=== PATIENT | female | born 1985 | race Two or more races ===

== ENCOUNTER 2021-06-17 01:07 | Inpatient (IN) | payer OTHER ==
[~2021-06-17] VITALS: Ht 157.5 cm; Wt 83.9 kg
[2021-06-17] MEDS ORDERED: IV NORMAL SALINE 1000 ML BAG IV ONE (01:30)
[2021-06-17] MEDS ORDERED: HYDROMORPHONE 1 MG/1 ML DISP.SYRIN IV ONE ×2 (01:30→04:15)
[2021-06-17] MEDS ORDERED: ONDANSETRON 4 MG/2 ML VIAL IV ONE (01:30)
[2021-06-17] MEDS ORDERED: ONDANSETRON 4 MG/2 ML VIAL ONE ×4 (01:33→18:54)
[2021-06-17] MEDS ORDERED: HYDROMORPHONE 2 MG/1 ML DISP.SYRIN ONE ×2 (01:33→04:20)
[2021-06-17 01:43] LABS: HEMATOCRIT 34.6 % (31.2-41.9); MEAN CORPUSCULAR HEMOGLOBIN 24.8 uug (24.7-32.8); MEAN CORPUSCULAR VOLUME 77.1 fL (75.5-95.3); PLATELET COUNT (AUTO) 325 K/uL (179-408)
[2021-06-17 01:55] LABS: POTASSIUM 3.9 mmol/L (3.5-5.1)
[2021-06-17 02:00] LABS: BILIRUBIN,DIRECT 0.1 mg/dL (0.0-0.2); BILIRUBIN,TOTAL 0.4 mg/dL (0.2-1.0); TOTAL PROTEIN, SERUM 8.9 g/dL (6.4-8.2)
[2021-06-17] MEDS ORDERED: LIDOCAINE 2% (UROJET) 10 ML JELLY MM ONE (02:45)
[2021-06-17 04:53] LABS: *URINE HCG, QUAL NEGATIVE (NEGATIVE)
[2021-06-17] MEDS ORDERED: SWABABLE VALVE TRANSFER SET EA MC ONE (05:11)
[2021-06-17] MEDS ORDERED: IOHEXOL 300MG/ML 100 ML INFUS..BTL ONE (05:11)
[2021-06-17] MEDS ORDERED: IV NORMAL SALINE 250 ML IV ONE (05:11)
[2021-06-17 05:40] LABS: *BILIRUBIN,URIN NEGATIVE (NEGATIVE); *BLOOD, URINE NEGATIVE (NEGATIVE); *CLARITY,URINE CLOUDY (CLEAR); *COLOR,URINE YELLOW (YELLOW); *KETONES,URINE NEGATIVE (NEGATIVE); *UROBILINOGEN,URINE 0.2 E.U./dl (NORMAL); LEUKOCYTE ESTERASE ,URINE TRACE (NEGATIVE); NITRITE, URINE NEGATIVE (NEGATIVE); UGLUCOSE NEGATIVE (NEGATIVE)
[2021-06-17 06:02] LABS: BACTERIA,URINE MODERATE /HPF (NONE SEEN); RBC,URINE 0-3 /HPF (0-3); SQUAMOUS EPITHELIAL CELL,UR MANY /HPF (NONE SEEN)
[2021-06-17] MEDS ORDERED: ACETAMINOPHEN 325 MG TABLET PO PRN (06:15)
[2021-06-17] MEDS ORDERED: Z GUARD REMEDY PASTE 57 GM TUBE TOP PRN (06:15)
[2021-06-17] MEDS ORDERED: PROCHLORPERAZINE EDISYLATE 10 MG/2 ML VIAL ONE (06:24)
[2021-06-17] MEDS ORDERED: PROCHLORPERAZINE EDISYLATE 10 MG/2 ML VIAL IV ONE (06:30)
[2021-06-17] MEDS ORDERED: LAMO200T2 PO ×2 (07:07)
[2021-06-17] MEDS ORDERED: DIATR MEGLU/DIATRIZOATE SODIUM 30 ML BOTTLE ONE (08:32)
[2021-06-17] MEDS ORDERED: PANTOPRAZOLE SODIUM 40 MG VIAL IV SCH (09:00)
[2021-06-17] MEDS: MORPHINE SULFATE 2 MG/1 ML DISP.SYRIN IV PRN ×3 (10:18→22:20)
[2021-06-17] MEDS: ONDANSETRON 4 MG/2 ML VIAL IV PRN ×2 (10:18→14:30)
[2021-06-17] MEDS ORDERED: MORPHINE SULFATE 2 MG/1 ML DISP.SYRIN ONE ×3 (10:21→22:23)
[2021-06-17] MEDS ORDERED: PANTOPRAZOLE SODIUM 40 MG VIAL ONE (10:21)
[2021-06-17] MEDS ORDERED: levETIRAcetam IV 500 MG in IV DEXTROSE 5% 100 ML IV SCH (13:45)
[2021-06-17] MEDS: CEFTRIAXONE 1 G in IV DEXTROSE 5% 50 ML IV SCH (14:55)
[2021-06-17] MEDS: IV D5/ 0.9% NACL 1,000 ML IV PRN (14:56)
[2021-06-17] MEDS ORDERED: CEFTRIAXONE /D5W 50ML IVPB **ER PYXIS IV ONE (15:02)
[2021-06-17] MEDS ORDERED: LIDOCAINE-MPF 2% 5 ML VIAL ONE (18:54)
[2021-06-17] MEDS ORDERED: NEOSTIGMINE METHYLSULFATE 10 MG/10 ML VIAL ONE (18:54)
[2021-06-17] MEDS ORDERED: PROPOFOL 200 MG/20 ML BOTTLE ONE (18:54)
[2021-06-17] MEDS ORDERED: METOCLOPRAMIDE HCL 10 MG/2 ML VIAL ONE (18:54)
[2021-06-17] MEDS ORDERED: GLYCOPYRROLATE 0.2 MG/ML VIAL ONE (18:54)
[2021-06-17] MEDS ORDERED: ROCURONIUM BROMIDE 50 MG/5 ML VIAL ONE (18:54)
[2021-06-17] MEDS ORDERED: CEFAZOLIN 1 G VIAL ONE (18:54)
[2021-06-17] MEDS ORDERED: LAMOTRIGINE 100 MG TABLET ONE ×2 (21:34→21:56)
[2021-06-17] MEDS: LAMOTRIGINE 100 MG TABLET PO SCH (21:40)
[2021-06-18] MEDS ORDERED: ACETAMINOPHEN 325 MG TABLET ONE ×2 (01:52→15:29)
[2021-06-18] MEDS ORDERED: MORPHINE SULFATE 2 MG/1 ML DISP.SYRIN ONE ×5 (01:53→16:57)
[2021-06-18] MEDS: MORPHINE SULFATE 2 MG/1 ML DISP.SYRIN IV PRN ×5 (02:12→20:19)
[2021-06-18] MEDS: ACETAMINOPHEN 325 MG TABLET PO PRN ×2 (02:13→15:25)
[2021-06-18 06:23] LABS: HEMATOCRIT 28.1 % (31.2-41.9); MEAN CORPUSCULAR HEMOGLOBIN 24.9 uug (24.7-32.8); MEAN CORPUSCULAR VOLUME 78.5 fL (75.5-95.3); PLATELET COUNT (AUTO) 211 K/uL (179-408)
[2021-06-18] MEDS: PANTOPRAZOLE SODIUM 40 MG TABLET.DR PO SCH (08:05)
[2021-06-18 08:10] LABS: BILIRUBIN,TOTAL 0.2 mg/dL (0.2-1.0); CREATININE 0.8 mg/dL (0.6-1.3); PHOSPHOROUS 2.7 mg/dL (2.5-4.9); POTASSIUM 3.5 mmol/L (3.5-5.1); TOTAL PROTEIN, SERUM 6.5 g/dL (6.4-8.2)
[2021-06-18] MEDS: LAMOTRIGINE 100 MG TABLET PO SCH ×2 (09:02→20:19)
[2021-06-18] MEDS: IV D5/ 0.9% NACL 1,000 ML IV PRN (09:07)
[2021-06-18] MEDS: CEFTRIAXONE 1 G in IV DEXTROSE 5% 50 ML IV SCH (15:03)
[2021-06-18] MEDS ORDERED: CEFTRIAXONE /D5W 50ML IVPB **ER PYXIS IV ONE (15:08)
[2021-06-18] MEDS: ONDANSETRON 4 MG/2 ML VIAL IV PRN (15:25)
[2021-06-18] MEDS ORDERED: ONDANSETRON 4 MG/2 ML VIAL ONE (15:29)
[2021-06-18 16:41] LABS: IRON, SERUM 56 ug/dL (50-175)
[2021-06-18 20:48] VITALS: BP 102/62
[2021-06-19] MEDS: IV D5/ 0.9% NACL 1,000 ML IV PRN ×2 (00:05→13:58)
[2021-06-19] MEDS: MORPHINE SULFATE 2 MG/1 ML DISP.SYRIN IV PRN ×6 (00:05→22:23)
[2021-06-19] MEDS: ONDANSETRON 4 MG/2 ML VIAL IV PRN (04:09)
[2021-06-19 04:30] VITALS: BP 99/58
[2021-06-19] MEDS: PANTOPRAZOLE SODIUM 40 MG TABLET.DR PO SCH (06:28)
[2021-06-19 07:01] LABS: HEMATOCRIT 25.8 % (31.2-41.9); MEAN CORPUSCULAR HEMOGLOBIN 25.1 uug (24.7-32.8); MEAN CORPUSCULAR VOLUME 77.7 fL (75.5-95.3); PLATELET COUNT (AUTO) 206 K/uL (179-408)
[2021-06-19 07:50] LABS: CREATININE 0.7 mg/dL (0.6-1.3); MAGNESIUM 1.9 mg/dL (1.8-2.4); PHOSPHOROUS 3.2 mg/dL (2.5-4.9); POTASSIUM 3.4 mmol/L (3.5-5.1)
[2021-06-19] MEDS: LAMOTRIGINE 100 MG TABLET PO SCH ×2 (09:35→20:34)
[2021-06-19] MEDS ORDERED: POTASSIUM CHLORIDE 20 MEQ TAB.PRT.SR PO ONE (10:15)
[2021-06-19 12:00] VITALS: BP 103/41
[2021-06-19] MEDS: CEFTRIAXONE 1 G in IV DEXTROSE 5% 50 ML IV SCH (15:05)
[2021-06-19 16:00] VITALS: BP 92/57
[2021-06-19 20:00] VITALS: BP 105/58
[2021-06-19] MEDS: PIPERACILLIN SODIUM/TAZOBACTAM 3.375 G in IV DEXTROSE 5% 100 ML IV SCH (21:49)
[2021-06-19] MEDS ORDERED: PIPERACILLIN SODIUM/TAZOBACTAM 3.375 G in IV DEXTROSE 5% 50 ML IV SCH (22:00)
[2021-06-20] MEDS ORDERED: MORPHINE SULFATE 2 MG/1 ML DISP.SYRIN IV ONE (01:14)
[2021-06-20 04:00] VITALS: BP 113/58
[2021-06-20] MEDS: PIPERACILLIN SODIUM/TAZOBACTAM 3.375 G in IV DEXTROSE 5% 100 ML IV SCH ×3 (06:05→21:05)
[2021-06-20] MEDS: PANTOPRAZOLE SODIUM 40 MG TABLET.DR PO SCH (06:06)
[2021-06-20 06:49] LABS: HEMATOCRIT 26.8 % (31.2-41.9); MEAN CORPUSCULAR HEMOGLOBIN 25.1 uug (24.7-32.8); MEAN CORPUSCULAR VOLUME 77.5 fL (75.5-95.3); PLATELET COUNT (AUTO) 227 K/uL (179-408)
[2021-06-20 06:57] LABS: CREATININE 0.7 mg/dL (0.6-1.3); MAGNESIUM 2.1 mg/dL (1.8-2.4); PHOSPHOROUS 3.7 mg/dL (2.5-4.9); POTASSIUM 3.8 mmol/L (3.5-5.1)
[2021-06-20] MEDS: MORPHINE SULFATE 2 MG/1 ML DISP.SYRIN IV PRN (09:39)
[2021-06-20] MEDS: LAMOTRIGINE 100 MG TABLET PO SCH ×2 (09:43→21:04)
[2021-06-20 10:35] VITALS: BP 91/44
[2021-06-20] MEDS: IV D5/ 0.9% NACL 1,000 ML IV PRN (13:13)
[2021-06-20] MEDS ORDERED: MIDAZOLAM HCL 2 MG/2 ML VIAL ONE (14:36)
[2021-06-20] MEDS ORDERED: HYDROMORPHONE 2 MG/1 ML DISP.SYRIN ONE (14:37)
[2021-06-20] MEDS ORDERED: FENTANYL CITRATE 250 MCG/5 ML AMPUL ONE (14:37)
[2021-06-20] MEDS ORDERED: ROCURONIUM BROMIDE 50 MG/5 ML VIAL ONE (14:38)
[2021-06-20] MEDS ORDERED: LIDOCAINE HCL 1% 20 ML VIAL ONE (15:28)
[2021-06-20] MEDS ORDERED: BUPIVACAINE/EPI PF 0.25% 30 ML VIAL ONE (15:29)
[2021-06-20] MEDS ORDERED: METRONIDAZOLE 500 MG/NS 100ML 500 MG in PREMIXED 1 EACH IV ONE (16:00)
[2021-06-20 16:32] VITALS: BP 112/62
[2021-06-20] MEDS ORDERED: BACITRACIN ZINC OINT 15 GM TUBE ONE (17:50)
[2021-06-20] MEDS ORDERED: HYDROMORPHONE 1 MG/1 ML DISP.SYRIN ONE (18:44)
[2021-06-20] MEDS ORDERED: FENTANYL CITRATE 100 MCG/2 ML AMPUL ONE (19:20)
[2021-06-20 20:27] VITALS: BP 98/57
[2021-06-20] MEDS: IBUPROFEN 800 MG TABLET PO SCH (21:04)
[2021-06-20] MEDS: GABAPENTIN 300 MG CAPSULE PO SCH (21:04)
[2021-06-20] MEDS: ACETAMINOPHEN 325 MG TABLET PO SCH (21:04)
[2021-06-20] MEDS ORDERED: LAMOTRIGINE 100 MG TABLET PO ONE (21:15)
[2021-06-20] MEDS: HYDROMORPHONE 1 MG/1 ML DISP.SYRIN IV PRN ×2 (21:25→23:39)
[2021-06-20] MEDS: ONDANSETRON 4 MG/2 ML VIAL IV PRN (21:25)
[2021-06-20] MEDS: IV LACTATED RINGERS SOLUTION 1,000 ML IV PRN (21:26)
[2021-06-21] MEDS: HYDROMORPHONE 1 MG/1 ML DISP.SYRIN IV PRN ×7 (01:46→20:25)
[2021-06-21 04:15] VITALS: BP 118/77
[2021-06-21] MEDS: PIPERACILLIN SODIUM/TAZOBACTAM 3.375 G in IV DEXTROSE 5% 100 ML IV SCH ×3 (05:12→21:12)
[2021-06-21] MEDS: IV LACTATED RINGERS SOLUTION 1,000 ML IV PRN (05:12)
[2021-06-21] MEDS: GABAPENTIN 300 MG CAPSULE PO SCH ×3 (05:13→21:11)
[2021-06-21] MEDS: ACETAMINOPHEN 325 MG TABLET PO SCH ×3 (05:13→21:11)
[2021-06-21] MEDS: IBUPROFEN 800 MG TABLET PO SCH ×3 (05:13→21:11)
[2021-06-21] MEDS: PANTOPRAZOLE SODIUM 40 MG TABLET.DR PO SCH (06:07)
[2021-06-21 06:28] LABS: HEMATOCRIT 27.2 % (31.2-41.9); MEAN CORPUSCULAR HEMOGLOBIN 25.4 uug (24.7-32.8); MEAN CORPUSCULAR VOLUME 78.1 fL (75.5-95.3); PLATELET COUNT (AUTO) 231 K/uL (179-408)
[2021-06-21 07:14] LABS: CREATININE 0.7 mg/dL (0.6-1.3); MAGNESIUM 1.8 mg/dL (1.8-2.4); PHOSPHOROUS 3.6 mg/dL (2.5-4.9); POTASSIUM 3.6 mmol/L (3.5-5.1)
[2021-06-21] MEDS: LAMOTRIGINE 100 MG TABLET PO SCH ×2 (08:11→20:26)
[2021-06-21 12:48] VITALS: BP 102/65
[2021-06-21 16:25] VITALS: BP 124/70
[2021-06-21 20:00] VITALS: BP 129/79
[2021-06-22] MEDS: HYDROMORPHONE 1 MG/1 ML DISP.SYRIN IV PRN ×2 (03:50→08:08)
[2021-06-22 04:00] VITALS: BP 102/66
[2021-06-22] MEDS: IBUPROFEN 800 MG TABLET PO SCH ×3 (05:25→21:47)
[2021-06-22] MEDS: GABAPENTIN 300 MG CAPSULE PO SCH ×3 (05:25→21:47)
[2021-06-22] MEDS: ACETAMINOPHEN 325 MG TABLET PO SCH ×3 (05:25→20:01)
[2021-06-22] MEDS: PIPERACILLIN SODIUM/TAZOBACTAM 3.375 G in IV DEXTROSE 5% 100 ML IV SCH ×3 (05:27→21:48)
[2021-06-22] MEDS: PANTOPRAZOLE SODIUM 40 MG TABLET.DR PO SCH (06:13)
[2021-06-22 06:39] LABS: HEMATOCRIT 25.6 % (31.2-41.9); MEAN CORPUSCULAR HEMOGLOBIN 25.1 uug (24.7-32.8); MEAN CORPUSCULAR VOLUME 77.9 fL (75.5-95.3); PLATELET COUNT (AUTO) 219 K/uL (179-408)
[2021-06-22 07:08] LABS: CREATININE 0.7 mg/dL (0.6-1.3); MAGNESIUM 1.7 mg/dL (1.8-2.4); PHOSPHOROUS 3.3 mg/dL (2.5-4.9); POTASSIUM 3.6 mmol/L (3.5-5.1)
[2021-06-22] MEDS: MAGNESIUM SULFATE/D5W 100 ML IV SCH ×2 (09:33→10:25)
[2021-06-22] MEDS: LAMOTRIGINE 100 MG TABLET PO SCH ×2 (09:33→20:02)
[2021-06-22 10:17] VITALS: BP 116/70
[2021-06-22 11:00] VITALS: BP 133/84
[2021-06-22] MEDS: DOCUSATE SODIUM 100 MG CAPSULE PO SCH ×2 (11:28→20:14)
[2021-06-22] MEDS: MORPHINE SULFATE 2 MG/1 ML DISP.SYRIN IV PRN ×2 (11:29→16:04)
[2021-06-22 17:09] VITALS: BP 111/73
[2021-06-22] MEDS: HYDROMORPHONE 2 MG/1 ML DISP.SYRIN IV PRN ×2 (19:57→23:52)
[2021-06-22 20:00] VITALS: BP 132/77
[2021-06-22] MEDS ORDERED: LORAZEPAM 2 MG/1 ML VIAL IV SCH (21:00)
[2021-06-22] MEDS: LORAZEPAM 2 MG/1 ML VIAL IV SCH (21:51)
[2021-06-22] MEDS: ONDANSETRON 4 MG/2 ML VIAL IV PRN (21:52)
[2021-06-23] MEDS: HYDROMORPHONE 2 MG/1 ML DISP.SYRIN IV PRN ×5 (02:15→21:59)
[2021-06-23] MEDS: IV LACTATED RINGERS SOLUTION 1,000 ML IV PRN ×2 (03:17→21:51)
[2021-06-23 04:00] VITALS: BP 120/67
[2021-06-23] MEDS: GABAPENTIN 300 MG CAPSULE PO SCH ×3 (05:21→21:16)
[2021-06-23] MEDS: IBUPROFEN 800 MG TABLET PO SCH ×3 (05:21→21:19)
[2021-06-23] MEDS: ACETAMINOPHEN 325 MG TABLET PO SCH ×3 (05:21→21:19)
[2021-06-23] MEDS: PIPERACILLIN SODIUM/TAZOBACTAM 3.375 G in IV DEXTROSE 5% 100 ML IV SCH (05:22)
[2021-06-23] MEDS: PANTOPRAZOLE SODIUM 40 MG TABLET.DR PO SCH (06:17)
[2021-06-23 06:52] LABS: HEMATOCRIT 26.7 % (31.2-41.9); MEAN CORPUSCULAR HEMOGLOBIN 25.1 uug (24.7-32.8); MEAN CORPUSCULAR VOLUME 78.3 fL (75.5-95.3); PLATELET COUNT (AUTO) 251 K/uL (179-408)
[2021-06-23] MEDS: DOCUSATE SODIUM 100 MG CAPSULE PO SCH ×2 (08:24→21:13)
[2021-06-23] MEDS: LAMOTRIGINE 100 MG TABLET PO SCH ×2 (08:24→21:13)
[2021-06-23 09:01] LABS: CREATININE 0.6 mg/dL (0.6-1.3); MAGNESIUM 2.2 mg/dL (1.8-2.4); PHOSPHOROUS 3.4 mg/dL (2.5-4.9); POTASSIUM 3.4 mmol/L (3.5-5.1)
[2021-06-23] MEDS: LORAZEPAM 2 MG/1 ML VIAL IV SCH ×2 (09:21→21:00)
[2021-06-23] MEDS ORDERED: POTASSIUM CHLORIDE 20 MEQ TAB.PRT.SR PO ONE (11:00)
[2021-06-23 11:23] VITALS: BP 112/60
[2021-06-23 15:19] VITALS: BP 112/67
[2021-06-23] MEDS: ONDANSETRON 4 MG/2 ML VIAL IV PRN ×2 (16:41→17:45)
[2021-06-23] MEDS: ENSURE ENLIVE (VAN) 240 ML LIQUID PO SCH (17:44)
[2021-06-23 20:36] VITALS: BP 121/79
[2021-06-24] MEDS: HYDROMORPHONE 2 MG/1 ML DISP.SYRIN IV PRN ×6 (01:53→20:00)
[2021-06-24 04:50] VITALS: BP 112/69
[2021-06-24] MEDS: ACETAMINOPHEN 325 MG TABLET PO SCH ×2 (06:00→14:09)
[2021-06-24] MEDS: IBUPROFEN 800 MG TABLET PO SCH ×2 (06:00→14:09)
[2021-06-24] MEDS: PANTOPRAZOLE SODIUM 40 MG TABLET.DR PO SCH (06:01)
[2021-06-24] MEDS: GABAPENTIN 300 MG CAPSULE PO SCH ×2 (06:01→14:09)
[2021-06-24] MEDS: DOCUSATE SODIUM 100 MG CAPSULE PO SCH (08:49)
[2021-06-24] MEDS: ENSURE ENLIVE (VAN) 240 ML LIQUID PO SCH ×2 (08:50→17:07)
[2021-06-24] MEDS: LAMOTRIGINE 100 MG TABLET PO SCH (08:50)
[2021-06-24] MEDS: LORAZEPAM 2 MG/1 ML VIAL IV SCH (09:00)
[2021-06-24] MEDS: ONDANSETRON 4 MG/2 ML VIAL IV PRN (09:03)
[2021-06-24 11:24] VITALS: BP 118/74
[2021-06-24 15:03] VITALS: BP 122/71
[2021-06-24] MEDS ORDERED: DOCU-141 PO (18:25)
[2021-06-24] MEDS ORDERED: HYDR-3980 PO (18:25)
[2021-06-24] MEDS ORDERED: GABA300C PO (18:25)
[2021-06-24] MEDS ORDERED: IBUP-1957 PO (18:25)
[2021-06-24] MEDS ORDERED: ACET325T53 PO (18:25)
[2021-06-24] MEDS ORDERED: PANT40TA49 PO (18:25)
[2021-06-24 21:51] VITALS: BP 120/69
== END 2021-06-24 20:55 | disposition home or self-care (01) | DRG 336 ==
LOC: ER 01:09 → TRANSITION 09:46 → MEDSURG3 06-18 18:03
PROVIDERS: ADMIT Hospitalist; ATTEND Internal Medicine
PROC: 0D9670Z Drainage of Stomach with Drainage Device, Via Natural or Artificial Opening (ICD-10-PCS; principal; 2021-06-17)
PROC: 0DN80ZZ Release Small Intestine, Open Approach (ICD-10-PCS; 2021-06-20)
DX: K56.51 Intestinal adhesions [bands], with partial obstruction (principal); N39.0 Urinary tract infection, site not specified; K80.20 Calculus of gallbladder without cholecystitis without obstruction; G40.909 Epilepsy, unspecified, not intractable, without status epilepticus; E66.9 Obesity, unspecified; Z68.33 Body mass index [BMI] 33.0-33.9, adult; D64.9 Anemia, unspecified; Z20.822 Contact with and (suspected) exposure to COVID-19
CPT/HCPCS: 36415; 74018; 74250; 83550; 83605; 83690; 83735; 84100; 84703; 85025; 87086; 93005; A4649; A4663; C9113; G0378; J0690; J0696; J0780; J1170; J2060; J2250; J2270; J2405; J2543; J2765; J3010; J3475; J3490; J7030; J7042; J7050; J7060; J7120; Q9963; Q9967